=== PATIENT | female | born 1965 | race Caucasian/White ===

== ENCOUNTER 2021-12-08 11:26 | Inpatient (IN) ==
[2021-12-08 12:13] LABS: Basophils # (auto) 0.02 K/uL (0-0.2); Basophils % (auto) 0.4 %; Eosinophils # (auto) 0.17 K/uL (0-0.5); Eosinophils % (auto) 3.4 %; Hematocrit (blood only) 35.5 % (37-47); Hemoglobin 12.5 g/dL (12.0-16.0); Lymphocytes # (auto) 1.42 K/uL (1.2-3.4); Lymphocytes % (auto) 28.6 %; Mean Corpuscular Hemoglobin 30.3 pg (25-34); Mean Corpuscular Hgb Conc 35.2 g/dL (32-36); Mean Platelet Volume 9.5 fL (7.4-10.4); Monocytes # (auto) 0.39 K/uL (0.11-0.59); Monocytes % (auto) 7.9 %; Neutrophils # (auto) 2.96 K/uL (1.4-6.5); Neutrophils % (auto) 59.7 %; Platelet Count 277 K/uL (130-400); RDW Coefficient of Variation 12.8 % (11.5-14.5); RDW Standard Deviation 40.1 fL (36.4-46.3); Red Blood Count 4.13 M/uL (4.2-5.4); White Blood Count 4.96 K/uL (4.8-10.8)
[2021-12-08 12:29] LABS: Albumin Globulin Ratio 1.6 (0.9-2); Albumin Level 4.2 gm/dl (3.4-5.0); BUN Creatinine Ratio 14.6 (10-20); Bilirubin,Total 0.4 mg/dl (0.2-1.0); Calcium 9.6 mg/dl (8.5-10.1); Creatinine Clr Calc Pharmacy 38.7 ml/min; Est GFR (African American) 52.7 ml/min; Est GFR (Non-African American) 45.5 ml/min; Globulin 2.7 gm/dl (2.5-4.0); Magnesium 1.8 mg/dl (1.7-2.4); Potassium 3.5 mmol/L (3.5-5.1); Total Protein 6.9 gm/dl (6.0-8.3)
[2021-12-08] MEDS ORDERED: FAMOTIDINE 20MG IV PUSH 20 MG/5 ML SYR IV STA (12:32)
[2021-12-08 12:33] LABS: Troponin I 0.88 ng/ml (0-0.04)
--- NOTE | 2021-12-08 12:33 | XRay Report ---
XR chest 1V portable CLINICAL HISTORY: Atypical chest pain TECHNIQUE: Single frontal radiograph of the chest was obtained. Comparison: None available at the time of this dictation. FINDINGS: No lines and tubes are seen. The cardiomediastinal silhouette is normal. The lungs are clear. No evid ence of pleural effusion or pneumothorax. IMPRESSION: No acute chest disease. ACT 112: Negative or not required by law. Electronically signed by: Cruz Childs M.D. 12/08/2021 12:32 PM
[2021-12-08] MEDS ORDERED: SODIUM CHLORIDE 0.9% 1000ML 1,000 ML IV SCH (12:45)
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
[2021-12-08] MEDS ORDERED: LORazepam 2 MG/1 ML VIAL IV STA (14:15)
[2021-12-08] MEDS ORDERED: ACETAMINOPHEN 1,000 MG/100 ML VIAL IV STA (14:16)
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
--- NOTE | 2021-12-08 16:11 | Electrocardiogram Report ---
Test Reason : Blood Pressure : / mmHG Vent. Rate : 061 BPM Atrial Rate : 061 BPM P-R Int : 164 ms QRS Dur : 070 ms QT Int : 404 ms P-R-T Axes : 027 -04 013 degrees QTc Int : 406 ms Poor data quality, interpretation may be adversely affected Normal sinus rhythm Low voltage QRS possible Inferior infarct , age undetermined Abnormal ECG No previous ECGs available Confirmed by Sylvester Kim ([id number]) on 12/08/2021 4:11:18 PM Referred By: ED Confirmed By:Janes Kim
[2021-12-08] MEDS ORDERED: ONDANSETRON INJ 2 MG/ML 2 ML VIAL IV PRN (16:14)
[2021-12-08] MEDS ORDERED: MAGNESIUM HYDROXIDE SUSP 30 ML UDC PO PRN (16:14)
[2021-12-08] MEDS ORDERED: POLYETHYLENE (MIRALAX) 17 GM PACK PO PRN (16:14)
[2021-12-08] MEDS ORDERED: ALUMINUM/MAGNESIUM SUSP 30 ML UDC PO PRN (16:14)
[2021-12-08] MEDS ORDERED: NITROGLYCERIN SL 0.4 MG/TAB TAB SL PRN (16:14)
[2021-12-08] MEDS: SODIUM CHLORIDE 0.9% 1000ML 1,000 ML IV SCH (17:29)
[2021-12-08] MEDS ORDERED: Heparin IV Adult Wt-Based Standard WITH Bolus Protocol IV SCH (18:03)
[2021-12-08] MEDS ORDERED: HEPARIN 25000 UNIT/500 ML D5W IV ONE (18:09)
[2021-12-08] MEDS ORDERED: HEPARIN SOD (PORCINE) 1000 UNIT/ML ONE (18:09)
[2021-12-08] MEDS ORDERED: HEPARIN SOD (PORCINE) 1000 UNIT/ML IV ONE (18:12)
[2021-12-08] MEDS ORDERED: HEPARIN SODIUM/DEXTROSE 25,000 UNITS/500 ML BAG IV SCH (18:15)
[2021-12-08] MEDS ORDERED: NON-FORMULARY MEDICATION (Acetaminophen 650 mg Tablet) PO PRN (18:21)
[2021-12-08] MEDS ORDERED: LOPERAMIDE HCL 2 MG CAP PO PRN (18:21)
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
[2021-12-08] MEDS: tiZANidine HCL 4 MG TABLET PO SCH (19:29)
[2021-12-08] MEDS: ACETAMINOPHEN 325 MG TAB PO PRN (21:31)
[2021-12-08] MEDS: FAMOTIDINE 20 MG TAB PO SCH (21:31)
[2021-12-08] MEDS ORDERED: HEPARIN SOD 5,000 UNIT/0.5 ML VIAL SQ SCH (22:00)
[2021-12-08] MEDS: ATORVASTATIN 40 MG TAB PO SCH (23:56)
[2021-12-08] MEDS: DICYCLOMINE HCL 20 MG TAB PO SCH (23:57)
[2021-12-09 01:15] LABS: Partial Thromboplastin Ratio 2.7
[2021-12-09 01:35] LABS: Partial Thromboplastin Time 75.5 Seconds (21.0-31.0)
[2021-12-09] MEDS: ACETAMINOPHEN 325 MG TAB PO PRN ×2 (02:55→20:37)
[2021-12-09 05:15] LABS: Hematocrit (blood only) 32.5 % (37-47); Hemoglobin 11.1 g/dL (12.0-16.0); Mean Corpuscular Hgb Conc 34.2 g/dL (32-36); Mean Corpuscular Volume 87.8 fL (80-100); Mean Platelet Volume 9.7 fL (7.4-10.4); Platelet Count 211 K/uL (130-400); RDW Coefficient of Variation 12.9 % (11.5-14.5); RDW Standard Deviation 41.7 fL (36.4-46.3); White Blood Count 3.72 K/uL (4.8-10.8)
[2021-12-09] MEDS: tiZANidine HCL 4 MG TABLET PO SCH ×3 (05:42→20:32)
[2021-12-09] MEDS: SODIUM CHLORIDE 0.9% 1000ML 1,000 ML IV SCH (05:44)
[2021-12-09 06:03] LABS: Albumin Globulin Ratio 1.7 (0.9-2); Albumin Level 3.4 gm/dl (3.4-5.0); BUN Creatinine Ratio 23.6 (10-20); Bilirubin,Total 0.3 mg/dl (0.2-1.0); Calcium 8.2 mg/dl (8.5-10.1); Chol HDL Ratio 4.2 (0-5); Creatinine Clr Calc Pharmacy 71.6 ml/min; Est GFR (African American) 107.7 ml/min; Total Protein 5.4 gm/dl (6.0-8.3)
[2021-12-09 07:11] LABS: Estimated Average Glucose 126 mg/dl
[2021-12-09 08:50] LABS: Partial Thromboplastin Time 55.6 Seconds (21.0-31.0)
[2021-12-09] MEDS ORDERED: FOLIC ACID 400 MCG TAB PO SCH (09:00)
[2021-12-09] MEDS: OLANZapine ZYDIS 5 MG ORALLY DIS. TAB PO SCH (09:29)
[2021-12-09] MEDS: THIAMINE HCL 100 MG TAB PO SCH (09:30)
[2021-12-09] MEDS: DICYCLOMINE HCL 20 MG TAB PO SCH ×3 (09:30→20:32)
[2021-12-09] MEDS: CYANOCOBALAMIN (B-12) 500 MCG TABLET PO SCH (09:30)
[2021-12-09] MEDS: FAMOTIDINE 20 MG TAB PO SCH ×2 (09:31→20:33)
[2021-12-09] MEDS: lamoTRIgine 100 MG TAB PO SCH (09:32)
[2021-12-09] MEDS: LORATADINE 10 MG TAB PO SCH (09:32)
[2021-12-09] MEDS: ATORVASTATIN 40 MG TAB PO SCH (09:32)
[2021-12-09] MEDS: MULTIVITAMIN TAB PO SCH (09:33)
[2021-12-09] MEDS: ASPIRIN 81 MG ECTAB PO SCH (09:33)
[2021-12-09] MEDS: FOLIC ACID 1 MG TAB PO SCH (09:33)
[2021-12-09] MEDS: CLOPIDOGREL BISULFATE 75 MG TAB PO SCH (09:33)
[2021-12-09] MEDS: DOCUSATE SODIUM 100 MG CAP PO SCH (09:33)
[2021-12-09] MEDS: FENOFIBRATE NANOCRYSTALLIZED 145 MG TABLET PO SCH (09:43)
--- NOTE | 2021-12-09 11:20 | Cardiology Progress Note ---
Date of Service December 09, 2021 Assessment & Plan (1) NSTEMI (non-ST elevated myocardial infarction): (2) TRISTON (acute kidney injury): (3) HLD (hyperlipidemia): Plan: Troponin I 0.88--> 1.07 --> 0.63ng/ml . Creatine normalized (Creat 1.3 --> 0.72). Records from [facility] arrived and reviewed. Pt presented there on 08/27/22 with an acute inferior STEMI underwent emergent catheterization, PCI , stent of technically complete proximal / mid RCA stenosis. Returned 08/31/21 for staged LAD, Diag PCI . PCI , FRANKY to Diagonal performed. 90% mid LAD noted however ,intervention unsuccessful. Outside echo describes inferior wall hypokinesis. Echo yesterday at this institution with apical hypokinesis, which appears to be a new finding. Will likely proceed with repeat catheterization. Discussed with Dr Doe, interventional cardiology. Pt agreeable. Admission and Anticipated Discharge Date Admission Date: December 08, 2021 Subjective Patient seen in follow up. Denies recurrent angina. No arrhythmias on telemetry. BP and creatinine improved. Physical Exam Physical Exam: Temp Pulse Resp BP Pulse Ox 36.6 C 58 L 16 108/66 98 12/09/21 08:00 12/09/21 08:00 12/09/21 08:00 12/09/21 08:00 12/09/21 08:00 Constitutional: WD/WN, vitals as above Respiratory: normal respiratory effort, lungs clear to auscultation Cardiovascular: RRR, no murmur, no edema Gastrointestinal (Abdomen): normal bowel sounds, soft, nontender, no hepatosplenomegaly Neurologic: PERRL, EOMI, accommodation nl, no face palsy, no dysarthria Results & Data ([facility]) Vital Signs (Past 12 Hours) Vital Signs Temp Pulse Resp BP Pulse Ox 12/09/21 08:00 36.6 C 58 L 16 108/66 98 12/09/21 04:02 36.6 C 61 16 97/66 L 99 Laboratory Results Cardiac Enzymes 12/08/21 12/08/21 12/08/21 Range/Units 11:35 12:24 17:18 AST 60 H (13-39) U/L Troponin I 0.88 H* 1.07 H* (0-0.04) ng/ml B-Natriuretic Peptide 22 (0-100) pg/ml 12/09/21 12/09/21 Range/Units 00:39 04:46 AST 99 H (13-39) U/L Troponin I 0.63 H* (0-0.04) ng/ml B-Natriuretic Peptide (0-100) pg/ml Coagulation 12/08/21 12/09/21 12/09/21 Range/Units 12:24 00:39 07:27 APTT 75.5 H* 55.6 H* (21.0-31.0) Seconds B-Natriuretic Peptide 22 (0-100) pg/ml Lipids 12/09/21 Range/Units 04:46 Triglycerides 178 H (0-150) mg/dl Cholesterol 84 (0-200) mg/dl HDL Cholesterol 20 mg/dl Cholesterol/HDL Ratio 4.2 (0-5) CBC 12/08/21 12/09/21 Range/Units 11:35 04:46 WBC 4.96 3.72 L (4.8-10.8) K/uL RBC 4.13 L 3.70 L (4.2-5.4) M/uL Hgb 12.5 11.1 L (12.0-16.0) g/dL Hct 35.5 L 32.5 L (37-47) % Plt Count 277 211 (130-400) K/uL Neut # (Auto) 2.96 (1.4-6.5) K/uL Lymph # (Auto) 1.42 (1.2-3.4) K/uL Pierce # (Auto) 0.39 (0.11-0.59) K/uL Eos # (Auto) 0.17 (0-0.5) K/uL Baso # (Auto) 0.02 (0-0.2) K/uL Comprehensive Metabolic Panel 12/08/21 12/09/21 Range/Units 11:35 04:46 Sodium 139 141 (136-145) mmol/L Potassium 3.5 4.0 (3.5-5.1) mmol/L Chloride 106 112 H (98-107) mmol/L Carbon Dioxide 23 25 (21-32) mmol/L BUN 19 17 (6-23) mg/dl Creatinine 1.30 H 0.72 D (0.6-1.2) mg/dl Glucose 141 H 114 H (70-99(Fasting)) mg/dl Calcium 9.6 8.2 L (8.5-10.1) mg/dl AST 60 H 99 H (13-39) U/L ALT 85 H 89 H (7-52) U/L Alkaline Phosphatase 105 H 129 H (34-104) U/L Total Protein 6.9 5.4 L D (6.0-8.3) gm/dl Albumin 4.2 3.4 (3.4-5.0) gm/dl
--- NOTE | 2021-12-09 11:30 | Communication Note ---
Date of Service: December 09, 2021 Heparin gtt held 11:25 am , pending cath.
[2021-12-09] MEDS ORDERED: HEPARIN (PORCINE) 1000 UNIT/ML 10 ML (CATH LAB USE ONLY) ONE (12:20)
[2021-12-09] MEDS ORDERED: MIDAZOLAM HCL 1 MG/ML 2ML VIAL ONE ×3 (12:20→15:09)
[2021-12-09] MEDS ORDERED: fentaNYL citrate 100 MCG/2 ML VIAL ONE ×2 (12:20→15:09)
[2021-12-09] MEDS ORDERED: niCARdipine HCL INJ 2.5 MG/ML 10 ML AMP ONE (12:20)
[2021-12-09] MEDS ORDERED: NITROGLYCERIN/D5W 100MCG/ML 20ML SYR ONE (12:21)
[2021-12-09] MEDS ORDERED: LIDOCAINE 1% LOCAL 20 ML VIAL ONE (12:22)
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
--- NOTE | 2021-12-09 13:23 | Pre Anesthesia Assessment ---
Date of Service December 09, 2021 Pre Sedation Assessment Vital Signs Temp Pulse Pulse Resp BP BP Pulse Ox 12/09/21 08:00 97.9 F 58 L 16 108/66 98 12/09/21 04:02 97.9 F 61 16 97/66 L 99 12/08/21 23:12 98.1 F 86 20 103/73 98 12/08/21 20:58 60 18 99/67 L 99 12/08/21 19:33 60 13 98 12/08/21 19:04 62 17 97 12/08/21 19:00 108/69 12/08/21 18:46 74 19 98 12/08/21 18:05 99 12/08/21 18:00 96/55 L 12/08/21 17:47 98 12/08/21 17:31 109/56 L 99 12/08/21 17:30 97 12/08/21 17:27 84/69 L 99 12/08/21 17:17 98 12/08/21 17:00 65 16 84/65 L 97 12/08/21 16:52 99 12/08/21 16:14 57 L 57 L 18 90/59 L 98 12/08/21 16:03 56 L 18 12/08/21 16:00 59 L 20 12/08/21 15:32 57 L 16 90/59 L 12/08/21 15:30 58 L 23 12/08/21 15:00 59 L 60 22 90/58 L 90/59 L 98 12/08/21 14:30 67 16 103/67 100 12/08/21 14:00 78 16 134/82 100 12/08/21 13:56 76 18 112/72 100 12/08/21 13:55 72 19 112/72 100 12/08/21 13:30 62 18 82/54 L 100 12/08/21 13:24 56 L 20 84/55 L 100 Cardiovascular RRR, no murmur, no edema Respiratory normal respiratory effort, lungs clear to auscultation Pre-Sedation Airway Assessment Smoking Status: Current every day smoker ASA: ASA3 Procedure Planning Contraindications for Sedation: none Current Medications Reviewed: Yes Notes The planned sedation has been discussed with the patient. Informed Consent was obtained. I have identified the patient, determined the appropriateness of sedation and have assessed the patient immediately prior to the procedure. All medicine(s) and interventions are by my order.
--- NOTE | 2021-12-09 13:26 | Electrocardiogram Report ---
Test Reason : Blood Pressure : / mmHG Vent. Rate : 057 BPM Atrial Rate : 057 BPM P-R Int : 168 ms QRS Dur : 078 ms QT Int : 434 ms P-R-T Axes : 063 001 023 degrees QTc Int : 422 ms Poor data quality, interpretation may be adversely affected Sinus bradycardia Low voltage QRS Abnormal ECG When compared with ECG of 08-DEC-2021 11:30, No significant change was found Confirmed by Sylvester Kim ([id number]) on 12/09/2021 1:26:04 PM Referred By: Mely Thomas Confirmed By:Janes Kim
--- NOTE | 2021-12-09 13:35 | Electrocardiogram Report ---
Test Reason : Blood Pressure : / mmHG Vent. Rate : 061 BPM Atrial Rate : 061 BPM P-R Int : 176 ms QRS Dur : 070 ms QT Int : 428 ms P-R-T Axes : 068 001 010 degrees QTc Int : 430 ms Normal sinus rhythm Normal ECG When compared with ECG of 08-DEC-2021 17:22, (unconfirmed) No significant change was found Confirmed by Sylvester Kim ([id number]) on 12/09/2021 1:35:47 PM Referred By: [facility] Confirmed By:Janes Kim
--- NOTE | 2021-12-09 14:08 | Communication Note ---
Date of Service: December 09, 2021 Attempted to see patient but she had gone to the clinical laboratory technician for cardiac procedure. Will re-attempt this afternoon or tomorrow morning for full psychiatric co nsultation. Plan: -Does not need 1:1 -If she asks to leave AMA please call psych liason so she can be assessed for risk of harm to self/others/ability to care for self -Psych consult pending -Holding pristiq as non-formulary, she may experience some withdrawal symptoms that can be addressed symptomatically -Signed CHAPIN for psych liason to reach out to [facility] re: disposition determination once she's medically clear
[2021-12-09] MEDS ORDERED: ATROPINE SULFATE 0.1 MG/ML 10ML SYR IV ONE (14:42)
[2021-12-09] MEDS ORDERED: CLOPIDOGREL BISULFATE 300 MG TAB ONE (15:59)
--- NOTE | 2021-12-09 16:41 | Hospitalist Progress Note ---
Date of Service December 09, 2021 Assessment & Plan (1) NSTEMI (non-ST elevated myocardial infarction): Plan: s/p LHC today with FRANKY to LAD -continue aspirin, plavix. No BB due to bradycardia (2) CAD in [place] artery: (3) HLD (hyperlipidemia): Plan: -already on statin, LDL 28. TG elevated--fenofibrate added (4) Pre-diabetes: (5) Bipolar disorder: Plan: -continue home medications -Psych consult pending, appreciate input. If patient threatens to leave AMA overnight--> will call psychiatry coordinator to assess (6) Alcohol abuse: Plan: -from [place], in the area for rehab at [facility] (7) TRISTON (acute kidney injury): Plan: -repeat BMP tomorrow Plan: Admission and Anticipated Discharge Date Admission Date: December 08, 2021 Subjective Went for cardiac cath today Post cath, patient feels well No specific complaints currently Physical Exam Physical Exam: Appears stated age, no acute distress, pleasant and comfortable Respiratory: breathing comfortably on room air, no wheezing/rhonchi/rales Cardiovascular: regular rate and rhythm, no murmurs/rubs/gallops Gastrointestinal (Abdomen): soft, non tender Musculoskeletal: right wrist is clean/dry/intact Results & Data Results & Data ([facility]) Vital Signs (Past 12 Hours) Vital Signs Temp Pulse Resp BP Pulse Ox 12/09/21 16:14 47 L 17 132/89 95 12/09/21 16:00 47 L 17 158/75 H 95 12/09/21 08:00 36.6 C 58 L 16 108/66 98 Laboratory Results Short CBC 12/09/21 Range/Units 04:46 WBC 3.72 L (4.8-10.8) K/uL Hgb 11.1 L (12.0-16.0) g/dL Hct 32.5 L (37-47) % Plt Count 211 (130-400) K/uL BMP 12/09/21 04:46 Sodium 141 Potassium 4.0 Chloride 112 H Carbon Dioxide 25 BUN 17 Creatinine 0.72 D Glucose 114 H Calcium 8.2 L Cardiac Enzymes 12/08/21 12/09/21 Range/Units 17:18 00:39 Troponin I 1.07 H* 0.63 H* (0-0.04) ng/ml Liver Function 12/09/21 Range/Units 04:46 Total Bilirubin 0.3 (0.2-1.0) mg/dl AST 99 H (13-39) U/L ALT 89 H (7-52) U/L Alkaline Phosphatase 129 H (34-104) U/L Albumin 3.4 (3.4-5.0) gm/dl Medications Administered Current Inpatient Medications Acetaminophen (Acetaminophen 325 Mg Tab) 650 mg PO Q4H PRN PRN Reason: Pain or Fever Stop: 01/07/22 16:13 Last Admin: 12/09/21 02:55 Dose: 650 mg Documented by: Al Hydrox/Mg Hydrox/Simethicone (Aluminum/Magnesium Susp 30 Ml Udc) 15 ml PO Q4H PRN PRN Reason: Dyspepsia Stop: 01/07/22 16:13 Aspirin (Aspirin 81 Mg Ectab) 81 mg PO DAILY NADIYA Stop: 01/08/22 08:59 Last Admin: 12/09/21 09:33 Dose: 81 mg Documented by: Atorvastatin Calcium (Atorvastatin 40 Mg Tab) 80 mg PO HS NADIYA Stop: 01/07/22 20:59 Last Admin: 12/09/21 09:32 Dose: 80 mg Documented by: Clopidogrel Bisulfate (Clopidogrel Bisulfate 75 Mg Tab) 75 mg PO DAILY NADIYA Stop: 01/08/22 08:59 Last Admin: 12/09/21 09:33 Dose: 75 mg Documented by: Cyanocobalamin (Cyanocobalamin (B-12) 500 Mcg Tablet) 1,000 mcg PO DAILY NADIYA Stop: 01/08/22 08:59 Last Admin: 12/09/21 09:30 Dose: 1,000 mcg Documented by: Dicyclomine HCl (Dicyclomine Hcl 20 Mg Tab) 20 mg PO TID NADIYA Stop: 01/07/22 20:59 Last Admin: 12/09/21 09:30 Dose: 20 mg Documented by: Docusate Sodium (Docusate Sodium 100 Mg Cap) 100 mg PO DAILY NADIYA Stop: 01/08/22 08:59 Last Admin: 12/09/21 09:33 Dose: 100 mg Documented by: Famotidine (Famotidine 20 Mg Tab) 20 mg PO BID NADIYA Stop: 01/07/22 20:59 Last Admin: 12/09/21 09:31 Dose: 20 mg Documented by: Fenofibrate (Fenofibrate Nanocrystallized 145 Mg Tablet) 145 mg PO QAM [facility] Stop: 01/08/22 09:29 Last Admin: 12/09/21 09:43 Dose: 145 mg Documented by: Folic Acid (Folic Acid 1 Mg Tab) 1 mg PO DAILY [facility] Stop: 01/08/22 08:59 Last Admin: 12/09/21 09:33 Dose: 1 mg Documented by: Lamotrigine (Lamotrigine 100 Mg Tab) 200 mg PO DAILY [facility] Stop: 01/08/22 08:59 Last Admin: 12/09/21 09:32 Dose: 200 mg Documented by: Loperamide HCl (Loperamide Hcl 2 Mg Cap) 4 mg PO Q4H PRN PRN Reason: Gi Upset Stop: 01/07/22 18:20 Loratadine (Loratadine 10 Mg Tab) 10 mg PO DAILY [facility] Stop: 01/08/22 08:59 Last Admin: 12/09/21 09:32 Dose: 10 mg Documented by: Magnesium Hydroxide (Magnesium Hydroxide Susp 30 Ml Udc) 30 ml PO Q12H PRN PRN Reason: Constipation Stop: 01/07/22 16:13 Miscellaneous (Desvenlafaxine 100 Mg - Order Awaiting Action) 1 ea N/A QS [facility] Stop: 01/08/22 00:00 Last Admin: 12/09/21 16:33 Dose: Not Given Documented by: Multivitamins (Multivitamin Tab) 1 tab PO DAILY [facility] Stop: 01/08/22 08:59 Last Admin: 12/09/21 09:33 Dose: 1 tab Documented by: Nitroglycerin (Nitroglycerin Sl 0.4 Mg/Tab Tab) 0.4 mg SL UD PRN PRN Reason: Chest Pain Stop: 01/07/22 16:13 Olanzapine (Olanzapine Zydis 5 Mg Orally Dis. Tab) 5 mg PO DAILY [facility] Stop: 01/08/22 08:59 Last Admin: 12/09/21 09:29 Dose: 5 mg Documented by: Ondansetron HCl (Ondansetron Inj 2 Mg/Ml 2 Ml Vial) 4 mg IV Q6H PRN PRN Reason: Nausea Stop: 01/07/22 16:13 Polyethylene Glycol (Polyethylene (Miralax) 17 Gm Pack) 17 gm PO DAILY PRN PRN Reason: Constipation Stop: 01/07/22 16:13 Thiamine HCl (Thiamine Hcl 100 Mg Tab) 100 mg PO DAILY NADIYA Stop: 01/08/22 08:59 Last Admin: 12/09/21 09:30 Dose: 100 mg Documented by: Tizanidine HCl (Tizanidine Hcl 4 Mg Tablet) 2 mg PO Q8H NADIYA Stop: 01/07/22 18:29 Last Admin: 12/09/21 16:33 Dose: Not Given Documented by:
--- NOTE | 2021-12-09 16:43 | Post Anesthesia Assessment ---
Date of Service December 09, 2021 Post Sedation Assessment Vital Signs Temp Pulse Pulse Resp BP BP Pulse Ox 12/09/21 16:14 47 L 17 132/89 95 12/09/21 16:00 47 L 17 158/75 H 95 12/09/21 08:00 97.9 F 58 L 16 108/66 98 12/09/21 04:02 97.9 F 61 16 97/66 L 99 12/08/21 23:12 98.1 F 86 20 103/73 98 12/08/21 20:58 60 18 99/67 L 99 12/08/21 19:33 60 13 98 12/08/21 19:04 62 17 97 12/08/21 19:00 108/69 12/08/21 18:46 74 19 98 12/08/21 18:05 99 12/08/21 18:00 96/55 L 12/08/21 17:47 98 12/08/21 17:31 109/56 L 99 12/08/21 17:30 97 12/08/21 17:27 84/69 L 99 12/08/21 17:17 98 12/08/21 17:00 65 16 84/65 L 97 12/08/21 16:52 99 Recovery Score Activity: Moves 4 extremities Respiration: Deep Breath/Cough Circulation: +/-20% PreAnes Value Consciousness: Fully Awake Oxygen Saturation: O2 needed for >90% Discharge Sedation Level of Care: Fast Track Phase II Post Sedation Plan On clinical assessment, the patient appears to have tolerated the sedation without complications. Patient is recovering as anticipated. Patient will continue to be monitored by nursing and may be discharged when sedation discharge criteria are met per below protocol. Upon Completions of procedure up to 15 minutes continue every 5 minute vital signs and the P.A.R. score; then discharge to a Phase I or Fast Track to Phase II per the following guidelines: * Discharge Patient to appropriate Phase II area if PAR is 8 or greater or return to pre- procedure baseline. The post - procedure orders will be as directed. * If PAR score is less than 8 or not return to pre-procedure baseline then patient will follow Phase I monitoring till PAR is reached for Phase II. The Phase I may be done in procedure room or may call to secure a Phase I area. * If naloxone or flumazenil are used for reversal, hold in Phase I for continued monitoring from when last reversal dose was given for a minimum of 60 minutes or longer pending the nurse and/or physician discretion of patient condition before discharge to Phase II. Please call the Sedation Physician to re-evaluate and complete post-note for discharge to Phase II area. Do NOT discharge from procedure sedation or Phase 1 until post- sedation evaluation note is complete by procedure /sedation MD Sedation Discharge Instructions to be given to the patient at discharge to home.
--- NOTE | 2021-12-09 16:56 | Cardiac Catheterization ---
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 Clinical evaluation leading to the procedure CAD Presenation: Non STEMI Anginal Classification: CCS IV Heart Failure: No Cardiogenic Shock within 24 Hours: No Cardiac Arrest within 24 Hours: No Imaging Studies Past 6 Months: Yes Stress Studies Past 6 Months: No Diagnostic Physicians Name: Sylvester Doe MD Status: Elective Closure Device Percutaneous Entry Location: Radial Closure Device: Radial Band Recommendations: PCI without planned CABG PCI Indication: PCI for high risk Non-MIKE Lesion Segment Name: Mid LAD Culprit Artery: Yes Stenosis Prior to Rx (%): 85 Chronic Total Occlusion: No IVUS: Yes FFR: No Pre-Procedure BLAYNE Flow: 3 Previously Treated Lesion: No Lesion Complexity: High/C Lesion Length (mm): 30 Thrombus Present: No Bifurcation Lesion: Yes Guidewire Across Lesion: Stenosis Post-Procedure (%): 0 Post-Procedure BLAYNE Flow: 3 Devices(s) Deployed: Yes Yes Intraprocedure Events Significant Disection: No Perforation: No Cardiac Cath Procedure Full Procedure Date December 09, 2021 Pre-Procedure Diagnosis Pre-Procedure Diagnosis: Non STEMI AUC Score AUC Score: 8 Post-Procedure Diagnosis Post-Procedure Diagnosis: Severe CAD, Successful PCI and Normal Intracardiac Pressures Procedure(s) Performed Procedure(s) Performed: Coronary Angiography, Left Heart Cath, Drug Eluting Stent and IVUS Roll Hauler Sylvester Doe MD Associate Art Director(s) Liao Estimated Blood Loss Estimated Blood Loss: 20 Medication(s) Medication(s): Fentanyl, Heparin, Lidocaine 1%, Nicardipine, Nitroglycerin and Versed Summary of Findings Indication: NSTEMI Access: 6Fr right radial artery Catheters: [place], EBU 3.5 guide Findings: LM -normal caliber, no significant disease LAD - 40-50 % ostial stenosis, 80 to 90% diffuse mid segment disease just after takeoff of medium D1. Distal vessel without significant disease and wraps around apex. D1 stent widely patent. Ramussmall to medium caliber, 40 to 50% ostial stenosis Circumflex -large caliber vessel, mid and distal luminal irregularities, large OM 2, left PLB without significant disease. RCA -dominant, medium caliber, proximal stent widely patent. No other significant disease. LVEDP -20 -- PCI -- Antithrombotic therapy: Heparin, clopidogrel Procedure: Left main cannulated with EBU 3.[address] 50 wire passed across lesion into distal vessel Mid LAD dilated with 2.0, 2.5 and 3.0 balloons with aid of telescope support catheter [place] IVUS catheter placed to mid LAD. Pullback revealed diffuse mildly calcified disease extending throughout mid segment and across takeoff of diagonal. Stent struts protruding into LAD. Ostial LAD with 50 to 60% noncalcified stenosis. No significant left main disease. Dilated LAD lesion stented with 3.0 x 38 mm [place] drug-eluting stent from takeoff of first septal across diagonal to mid segment Stent post-dilated with 3.5 noncompliant balloon First diagonal wired with pilot highway patrol 50 wire. Unable to pass 2.0 or 1.5 balloon across stent struts. IC vasodilators administered for spasm Post procedure BLAYNE 3 flow in LAD and first diagonal, stent well expanded with minimal residual stenosis and no apparent cardiac complications. Arterial Closure: TR band Summary: 1. Severe single vessel coronary artery disease -80 to 90% diffuse mid LAD disease Widely patent proximal RCA stent Widely patent first diagonal stent 2. Mildly elevated intracardiac filling pressure (LVEDP 20). 3. Successful PCI of proximal to mid LAD with single drug-eluting stent (3.0 x 38 mm Diego; postdilated with 3.5 NC). Recommendations: To PCU for continued monitoring Reloaded with clopidogrel 300 mg in laboratory sampler Continue dual-antiplatelet therapy for at least 1 year Cardiac rehab when returns home Hemodynamics Rest Ao:: 122/58/88 Final Ao: 163/72/109 LV: 114/20 Recommendations Recommendations: PCI without planned CABG Specimens Specimens: None Radiation Exposure (mGy) 3618 Contrast (mls) 120 Drains Drains: none Anesthesia moderate 0330-7315 Procedural Complication(s) None Disposition PCU I attest to the content of the Intraoperative Record and any orders documented therein. Any exceptions are noted below. [employer] Card Cath Procedure Codes Cardiac Catheterization Procedure 1: Cardiovascular Cath Procedures: 78263 Coronaries and LHC (+/-LV) Therapeutic Services & Ancillary Proc Procedure 1: Cardiovascular Tx and Anc Procedures: 79358 IV Ultrasound (Coronary or Graft) Moderate Sedation Procedure 1: Sedation/Anesthesia: 12794 Mod Sedation by the same physician;Init15 Min Child Age 5 & Up Procedure 2: Sedation/Anesthesia: 90136 Mod Sedation by the same physician; Ea [id number] Minutes Stenting Procedure 1: Cardiovascular Stent Procedures: 02358 [facility] transcatheter placement of intracoronary stent(s), with ang PG Care Time/CCT Total # of Minutes Spent Total Time Spent with Patient: Total time spent is greater than 50% in coordination of care (as documented) at patient's floor/unit and/or counseling patient:
--- NOTE | 2021-12-09 17:14 | Electrocardiogram Report ---
Test Reason : Blood Pressure : / mmHG Vent. Rate : 047 BPM Atrial Rate : 047 BPM P-R Int : 160 ms QRS Dur : 084 ms QT Int : 434 ms P-R-T Axes : 060 004 -20 degrees QTc Int : 384 ms Sinus bradycardia Low voltage QRS Nonspecific T wave abnormality Abnormal ECG When compared with ECG of 09-DEC-2021 05:44, Nonspecific T wave abnormality now evident in Anterior leads Confirmed by Sylvester Kim ([id number]) on 12/09/2021 5:13:50 PM Referred By: Mely Thomas Confirmed By:Janes Kim
[2021-12-09] MEDS ORDERED: SODIUM CHLORIDE 0.9% 1000ML 1,000 ML IV SCH (18:00)
[2021-12-10] MEDS ORDERED: MoRPHine SULFATE 4 MG/ML 1 ML CARP\\VIAL IV PRN (04:34)
[2021-12-10] MEDS ORDERED: traMADol HCL 50 MG TABLET PO PRN (04:34)
[2021-12-10 04:55] LABS: Hematocrit (blood only) 31.1 % (37-47); Hemoglobin 10.7 g/dL (12.0-16.0); Mean Corpuscular Hemoglobin 30.3 pg (25-34); Mean Corpuscular Hgb Conc 34.4 g/dL (32-36); Mean Corpuscular Volume 88.1 fL (80-100); Mean Platelet Volume 9.2 fL (7.4-10.4); Platelet Count 234 K/uL (130-400); RDW Coefficient of Variation 13.1 % (11.5-14.5); RDW Standard Deviation 42.2 fL (36.4-46.3); Red Blood Count 3.53 M/uL (4.2-5.4); White Blood Count 4.58 K/uL (4.8-10.8)
[2021-12-10 05:20] LABS: Partial Thromboplastin Time 26.7 Seconds (21.0-31.0)
[2021-12-10 05:35] LABS: Troponin I 0.99 ng/ml (0-0.04)
[2021-12-10 05:45] LABS: Albumin Globulin Ratio 1.6 (0.9-2); Albumin Level 3.4 gm/dl (3.4-5.0); BUN Creatinine Ratio 20.6 (10-20); Bilirubin,Total 0.2 mg/dl (0.2-1.0); Calcium 8.3 mg/dl (8.5-10.1); Creatinine Clr Calc Pharmacy 84.5 ml/min; Est GFR (African American) 115.4 ml/min; Est GFR (Non-African American) 99.6 ml/min; Globulin 2.1 gm/dl (2.5-4.0); Potassium 3.6 mmol/L (3.5-5.1); Total Protein 5.5 gm/dl (6.0-8.3)
[2021-12-10] MEDS: tiZANidine HCL 4 MG TABLET PO SCH ×3 (06:07→20:35)
[2021-12-10] MEDS: FAMOTIDINE 20 MG TAB PO SCH ×2 (08:47→20:35)
[2021-12-10] MEDS: DICYCLOMINE HCL 20 MG TAB PO SCH ×3 (08:47→20:35)
[2021-12-10] MEDS: lamoTRIgine 100 MG TAB PO SCH (08:47)
[2021-12-10] MEDS: CYANOCOBALAMIN (B-12) 500 MCG TABLET PO SCH (08:48)
[2021-12-10] MEDS: FOLIC ACID 1 MG TAB PO SCH (08:48)
[2021-12-10] MEDS: ASPIRIN 81 MG ECTAB PO SCH (08:50)
[2021-12-10] MEDS: OLANZapine ZYDIS 5 MG ORALLY DIS. TAB PO SCH (08:50)
[2021-12-10] MEDS: FENOFIBRATE NANOCRYSTALLIZED 145 MG TABLET PO SCH (08:51)
[2021-12-10] MEDS: DOCUSATE SODIUM 100 MG CAP PO SCH (08:52)
[2021-12-10] MEDS: THIAMINE HCL 100 MG TAB PO SCH (08:53)
[2021-12-10] MEDS: LORATADINE 10 MG TAB PO SCH (08:53)
[2021-12-10] MEDS: CLOPIDOGREL BISULFATE 75 MG TAB PO SCH (08:53)
[2021-12-10] MEDS: MULTIVITAMIN TAB PO SCH (08:53)
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
[2021-12-10] MEDS: NYSTATIN/TRIAMCIN OINT 15 GM TUBE EXT SCH ×2 (11:36→20:36)
--- NOTE | 2021-12-10 16:58 | Electrocardiogram Report ---
Test Reason : Blood Pressure : / mmHG Vent. Rate : 064 BPM Atrial Rate : 064 BPM P-R Int : 156 ms QRS Dur : 088 ms QT Int : 442 ms P-R-T Axes : 057 002 -22 degrees QTc Int : 455 ms Normal sinus rhythm T wave abnormality, consider lateral ischemia Abnormal ECG When compared with ECG of 09-DEC-2021 16:07, Inverted T waves have replaced nonspecific T wave abnormality in Lateral leads QT has lengthened Confirmed by Sylvester Kim ([id number]) on 12/10/2021 4:57:57 PM Referred By: Mely Thomas Confirmed By:Janes Kim
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
[2021-12-10] MEDS: ATORVASTATIN 40 MG TAB PO SCH (20:35)
[2021-12-11 05:16] LABS: Hematocrit (blood only) 34.1 % (37-47); Mean Corpuscular Hemoglobin 30.9 pg (25-34); Mean Corpuscular Hgb Conc 35.2 g/dL (32-36); Mean Corpuscular Volume 87.9 fL (80-100); Mean Platelet Volume 9.3 fL (7.4-10.4); Platelet Count 294 K/uL (130-400); RDW Coefficient of Variation 12.7 % (11.5-14.5); RDW Standard Deviation 41.3 fL (36.4-46.3); Red Blood Count 3.88 M/uL (4.2-5.4); White Blood Count 6.26 K/uL (4.8-10.8)
[2021-12-11] MEDS: tiZANidine HCL 4 MG TABLET PO SCH ×3 (05:28→21:45)
[2021-12-11 05:43] LABS: BUN Creatinine Ratio 18.1 (10-20); Calcium 9.4 mg/dl (8.5-10.1); Creatinine Clr Calc Pharmacy 73.9 ml/min; Est GFR (African American) 107.7 ml/min; Potassium 3.9 mmol/L (3.5-5.1)
[2021-12-11] MEDS: CYANOCOBALAMIN (B-12) 500 MCG TABLET PO SCH (07:42)
[2021-12-11] MEDS: FENOFIBRATE NANOCRYSTALLIZED 145 MG TABLET PO SCH (07:42)
[2021-12-11] MEDS: FAMOTIDINE 20 MG TAB PO SCH ×2 (07:42→21:45)
[2021-12-11] MEDS: ASPIRIN 81 MG ECTAB PO SCH (07:42)
[2021-12-11] MEDS: MULTIVITAMIN TAB PO SCH ×2 (07:42→07:53)
[2021-12-11] MEDS: OLANZapine ZYDIS 5 MG ORALLY DIS. TAB PO SCH (07:42)
[2021-12-11] MEDS: DICYCLOMINE HCL 20 MG TAB PO SCH ×3 (07:42→21:46)
[2021-12-11] MEDS: THIAMINE HCL 100 MG TAB PO SCH (07:42)
[2021-12-11] MEDS: FOLIC ACID 1 MG TAB PO SCH (07:42)
[2021-12-11] MEDS: LORATADINE 10 MG TAB PO SCH (07:42)
[2021-12-11] MEDS: lamoTRIgine 100 MG TAB PO SCH (07:42)
[2021-12-11] MEDS: CLOPIDOGREL BISULFATE 75 MG TAB PO SCH (07:42)
[2021-12-11] MEDS: NYSTATIN/TRIAMCIN OINT 15 GM TUBE EXT SCH ×2 (07:43→21:49)
[2021-12-11] MEDS: DOCUSATE SODIUM 100 MG CAP PO SCH ×2 (07:45→07:53)
[2021-12-11] MEDS: DESVENLAFAXINE SUCCINATE ER TABLET PO SCH (10:15)
--- NOTE | 2021-12-11 11:33 | Cardiology Progress Note ---
Date of Service December 11, 2021 Assessment & Plan (1) NSTEMI (non-ST elevated myocardial infarction): (2) TRISTON (acute kidney injury): (3) HLD (hyperlipidemia): (4) Bipolar disorder: (5) Anxiety: (6) PTSD (post-traumatic stress disorder): (7) Alcohol abuse: Plan: (1) NSTEMI (non-ST elevated myocardial infarction): Records from [facility] arrived and reviewed. Pt presented there on 08/27/22 with an acute inferior STEMI underwent emergent catheterization, PCI , stent of technically complete proximal / mid RCA stenosis. Returned 08/31/21 for staged LAD, Diag PCI . PCI , FRANKY to Diagonal performed. 90% mid LAD noted however ,intervention unsuccessful. Outside echo (08/2021) describes inferior wall hypokinesis. Echo at this institution with apical hypokinesis, which appears to be a new finding, low normal LVEF. 12/09/21: Cardiac cath, R radial approach, prior RCA and Diag stents patent. Struts of Diag stent noted to protrude into the LAD. High grade mild LAD stenosis noted. Successful PCI of proximal to mid LAD with single drug-eluting stent (3.0 x 38 mm Diego; postdilated with 3.5 NC) Continue ASA, clopidogrel, statin therapy. Patient not on beta kevin previously, likely due to use of clonidine which has potent heart rate lowering effect. Will increase patient's activity today. (2) TRISTON (acute kidney injury): TRISTON resolved. (3) HLD (hyperlipidemia): LDL 28. Continue atorvastatin 80 and fenofibrate. (4) Bipolar disorder / (5) Anxiety / (6) PTSD (post-traumatic stress disorder) /(7) Alcohol abuse: Per review of case management/psychiatric liaison, patient unable to return to [facility]. Alternatives being explored. Patient had been transported from her home in [facility] to [facility] via their transportation. She does not have a friend or family member that she feels she can call for a ride home. -Patient had been on clonidine 0.2 mg BID as outpatient for treatment of addiction/ withdrawal / and PTSD. -Low BP on presentation to ED likely provoked by acute co-administration of clonidine and nitroglycerin. This is contraindicated and should be avoided in future. Blood pressures have trended toward improvement, most recent measurement 137/77. Add back clonidine, at lower dose of 0.1 mg twice daily. This medication is not considered first-line therapy in the setting of the patient having recently been treated for ACS, however given the benefit patient receives from the noncardiac effects, this appears to be an important medication for her. Metoprolol therefore not prescribed given treatment with clonidine, to avoid bradycardia. Continue to hold valsartan 160 mg daily. DISPOSITION: Patient stable for discharge from a cardiac standpoint, pending determination of disposition plan with regards to her other needs. Admission and Anticipated Discharge Date Admission Date: December 08, 2021 Subjective Patient seen in cardiology follow-up. She states she feels well from a heart standpoint, denies chest discomfort or shortness of breath. Telemetry reveals sinus rhythm in the 70s. Physical Exam Constitutional: WD/WN, vitals as above Respiratory: normal respiratory effort, lungs clear to auscultation Cardiovascular: RRR, no murmur, no edema Gastrointestinal (Abdomen): normal bowel sounds, soft, nontender, no hepatosplenomegaly Neurologic: PERRL, EOMI, accommodation nl, no face palsy, no dysarthria Results & Data ([facility]) Vital Signs (Past 12 Hours) Vital Signs Temp Pulse Resp BP Pulse Ox 12/11/21 04:00 37.3 C 76 18 136/77 96 12/11/21 00:42 37.3 C 68 16 122/69 96
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
[2021-12-11] MEDS ORDERED: cloNIDine HCL 0.1 MG TAB PO SCH (21:00)
[2021-12-11] MEDS: ATORVASTATIN 40 MG TAB PO SCH (21:46)
[2021-12-12] MEDS: tiZANidine HCL 4 MG TABLET PO SCH (05:59)
[2021-12-12] MEDS: DICYCLOMINE HCL 20 MG TAB PO SCH (08:11)
[2021-12-12] MEDS: FAMOTIDINE 20 MG TAB PO SCH (08:12)
[2021-12-12] MEDS: THIAMINE HCL 100 MG TAB PO SCH (08:12)
[2021-12-12] MEDS: ASPIRIN 81 MG ECTAB PO SCH (08:12)
[2021-12-12] MEDS: CLOPIDOGREL BISULFATE 75 MG TAB PO SCH (08:12)
[2021-12-12] MEDS: FOLIC ACID 1 MG TAB PO SCH (08:13)
[2021-12-12] MEDS: FENOFIBRATE NANOCRYSTALLIZED 145 MG TABLET PO SCH (08:13)
[2021-12-12] MEDS: OLANZapine ZYDIS 5 MG ORALLY DIS. TAB PO SCH (08:13)
[2021-12-12] MEDS: lamoTRIgine 100 MG TAB PO SCH (08:13)
[2021-12-12] MEDS: DESVENLAFAXINE SUCCINATE ER TABLET PO SCH (08:14)
[2021-12-12] MEDS: CYANOCOBALAMIN (B-12) 500 MCG TABLET PO SCH (08:14)
[2021-12-12] MEDS ORDERED: METOPROLOL SUCC 25MG EXT REL TAB PO SCH (09:00)
== END 2021-12-12 08:30 | disposition home or self-care (01) | DRG 247 ==
LOC: ED 11:26 → SUATTDRO 14:54 → EDINP 14:54 → 1E 16:03 → 2E 12-11 17:26